=== PATIENT | female | born 1990 | race Native Hawaiian/Other Pacific Islander ===

== ENCOUNTER 2016-08-30 05:48 | Inpatient (IN) | payer OTHER ==
[~2016-08-30] VITALS: Ht 154.9 cm; Wt 102.1 kg
[2016-08-30 05:56] VITALS: BP 133/88; TEMP 97.9
[2016-08-30] MEDS ORDERED: AZIT250T3 PO (06:01)
[2016-08-30] MEDS ORDERED: METHYLPRED16 MG PO (06:13)
[2016-08-30 06:28] LABS: PLATELET COUNT 345 K/uL (152-353)
[2016-08-30 06:35] LABS: POTASSIUM 3.6 mmol/L (3.6-5.2); SODIUM 138 mmol/L (136-145)
[2016-08-30 10:00] VITALS: BP 160/80
[2016-08-30 11:58] VITALS: BP 152/89; TEMP 98.3; Ht 154.9 cm; Wt 102.1 kg
[2016-08-30] MEDS ORDERED: PROMETHAZINE PO (12:55)
[2016-08-30 16:00] VITALS: BP 119/71; TEMP 98.7
[2016-08-30 20:00] VITALS: BP 124/71; TEMP 97.8
[2016-08-30 23:46] VITALS: BP 127/78; TEMP 98.8
[2016-08-31 04:00] VITALS: BP 121/69; TEMP 97.9
[2016-08-31 06:35] LABS: PLATELET COUNT 306 K/uL (152-353)
[2016-08-31 06:56] LABS: POTASSIUM 4.2 mmol/L (3.6-5.2); SODIUM 137 mmol/L (136-145)
[2016-08-31 08:00] VITALS: BP 138/87; TEMP 97.8
--- NOTE | 2016-08-31 15:54 | NUR ---
DC INSTRUCTIONS GIVEN TO PT AND FAMILY. PT VERBALIZED UNDERSTANDING. RX GIVEN TO PT AND INSTRUCTED PT ON FOLLOW UP APPT. IV DC'D WITH CANNULA INTACT AND SITE CARE PROVIDED. PT LEFT VIA WC AT THIS TIME. NAD NOTED
== END 2016-08-31 15:50 | disposition home or self-care (01) | DRG 439 ==
LOC: ED 05:48 → MED/SURG 10:18
PROVIDERS: Emergency Medicine; ADMIT Specialist
DX: K85.80 Other acute pancreatitis without necrosis or infection (principal); A04.8 Other specified bacterial intestinal infections; R74.8 Abnormal levels of other serum enzymes
CPT/HCPCS: 36415; 80053; 80061; 81000; 82150; 83690; 83735; 84443; 85027; 86318; 96374; 96375; 99284; J2175; J2550; Q9963

== ENCOUNTER 2022-04-29 09:30 | Outpatient (CLI) | payer OTHER ==
[~2022-04-29 09:30] MED LIST: AZIT250T3 PO; METHYLPRED16 MG PO; PROMETHAZINE PO
== END 2022-04-29 19:53 | disposition home or self-care (01) ==
LOC: MRI 09:30
PROVIDERS: ATTEND Orthopaedic Surgery
DX: M43.16 Spondylolisthesis, lumbar region (principal); M51.26 Other intervertebral disc displacement, lumbar region; M47.896 Other spondylosis, lumbar region; M48.061 Spinal stenosis, lumbar region without neurogenic claudication; M46.06 Spinal enthesopathy, lumbar region; E66.01 Morbid (severe) obesity due to excess calories; M54.16 Radiculopathy, lumbar region